=== PATIENT | male | born 1950 | race Two or more races ===

== ENCOUNTER 2020-02-26 07:16 | Day surgery (SDC) | payer OTHER ==
[~2020-02-26 07:16] MED LIST: METFORMIN HCL500 M3 PO
== END 2020-02-26 15:35 | disposition home or self-care (01) ==
LOC: CIR.AMB 07:16 → ADM 10:45 → CIR.AMB 15:35
PROVIDERS: ATTEND Orthopaedic Surgery Hand Surgery
DX: M19.042 Primary osteoarthritis, left hand (principal); R22.32 Localized swelling, mass and lump, left upper limb; L03.012 Cellulitis of left finger